=== PATIENT | male | born 1970 | race Caucasian/White ===

== ENCOUNTER 2020-10-08 05:12 | Observation (INO) ==
--- NOTE | 2020-09-28 10:35 | PAT Medication Instructions ---
Medication Instructions Date of Service September 28, 2020 Home Medications Medication Instructions Recorded sodium,potassium,mag sulfates 17.5 See Rx Instructions PO .COMPLEX 12/20/19 gram-3.13 gram-1.6 gram oral soln #354 ml sodium,potassium,mag sulfates 17.5 gram-3.13 gram-1.6 gram oral soln See Rx Instructions atorvastatin [Lipitor] 40 mg PO QAM paroxetine HCl [Paxil] 10 mg PO QAM paroxetine HCl [Paxil] 40 mg PO QAM acetaminophen [Tylenol Extra Strength] 1,000 mg PO Q6H PRN latanoprostene bunod [Vyzulta] 1 drp OPHTHALMIC (EYE) QAM multivitamin 1 tab PO QPM Continue as directed sodium,potassium,mag sulfates 17.5 gram-3.13 gram-1.6 gram oral soln See Rx Instructions Take morning of surgery With a small sip of water, OTHERWISE NOTHING TO EAT OR DRINK AFTER MIDNIGHT: atorvastatin [Lipitor] 40 mg PO QAM paroxetine HCl [Paxil] 10 mg PO QAM paroxetine HCl [Paxil] 40 mg PO QAM acetaminophen [Tylenol Extra Strength] 1,000 mg PO Q6H PRN (okay to take up to 4 hours prior to surgery if needed) latanoprostene bunod [Vyzulta] 1 drp OPHTHALMIC (EYE) QAM Take evening before surgery acetaminophen [Tylenol Extra Strength] 1,000 mg PO Q6H PRN (if needed) multivitamin 1 tab PO QPM Other Notes If you have any questions please call us at [phone] or [phone] or [phone] or [phone]
--- NOTE | 2020-09-30 13:07 | Anesthesiology Consultation ---
Date of Service September 30, 2020 Assessment & Plan (1) Encounter for pre-operative examination: Chart Review Chart Review: Acceptable Risk for Surgery (pending preop Covid testing results ) and Patient seen in Pre Admission Testing Pt admits to drinking 6 cans of beer daily Per PAT appointment 09/30/2020, patient resides in [facility]. Wears mask when required per [facility] guidelines. Good hand hygiene. Tries to social distance. Travel to [place] to [facility] 09/12/2020. Patient is vaccinated for Covid. No known Covid infection in the past 90 days. No known Covid positive contacts or Covid related symptoms. Pt traveling to [place] to watch grandchildren- will return 10/03/20. Preop Covid testing scheduled 10/06/20= will await results. Educated on importance of self quarantining, social distancing and wearing mask in public both for the patient after Covid testing done Teaching & Discussion Pre-Anesthesia Teaching/Discussion Notes: Instructed NPO after midnight before surgery,except medications with 15 cc of water. Medication instructions provided according to the [facility] guidelines. History Surgery Operation Date: 10/08/20 11:00 Proposed Procedures p Right Unicompartmental Knee - Ryan Davidson MD s Right Total Knee Replacement - Ryan Davidson MD Height/Weight Height: 5 ft 8 in Weight: 108.3 kg Allergies Allergy/AdvReac Type Severity Reaction Status Date / Time cat dander Allergy Severe eyes Verified 09/28/20 08:38 swell/throat swelling No Known Drug Allergies Allergy Unknown NONE Verified 09/28/20 08:38 Medications Home Medications Medication Instructions Recorded Confirmed Last Taken atorvastatin 40 mg tablet (Lipitor) 40 mg PO QAM 12/23/19 09/28/20 12/29/19 paroxetine HCl 10 mg tablet (Paxil) 10 mg PO QAM 12/23/19 09/28/20 12/29/19 paroxetine HCl 40 mg tablet (Paxil) 40 mg PO QAM 12/23/19 09/28/20 12/29/19 acetaminophen 500 mg capsule 1,000 mg PO Q6H PRN 09/28/20 09/28/20 Unknown latanoprostene bunod 0.024 % eye 1 drp OPHTHALMIC (EYE) QAM 09/28/20 09/28/20 Unknown drops (Vyzulta) multivitamin 1 tab PO QPM 09/28/20 09/28/20 Unknown Past Medical History Medical History Anxiety Depression Glaucoma Follows with eye doctor routinely Hyperlipidemia Obesity Exercise / Class Metabolic Activity II 4-5 Yardwork/Stairs/Walk up hill (ONE FLIGHT OF STAIRS - NO CHEST PAIN OR SOB ) Past Family History Family History Other No family history of adverse response to anesthesia Past Surgical History Surgical History History of colonoscopy 2020 History of root canal procedure x2 History of tooth extraction History of wisdom tooth extraction Hx of vasectomy Past Anesthesia History No Hx of Anesthesia Complications (with exception to one episode of PONV with vasectomy ) and No Family Hx of Anesthesia Complications History of PONV No Hx of Motion Sickness and History of PONV (one episode of PONV with vasectomy ) Social History Smoking Status: Current every day smoker tobacco type: cigarettes Smoking cigarettes per day: 20 CIGS A DAY Do You Dip or Chew Tobacco: Yes (1 CAN A DAY) Hx Alcohol Use: Yes Alcohol type: beer alcohol intake frequency: 3 or more drinks per day Alcohol Intake Frequency Comment: 6 CANS OF BEER DAILY Hx Substance Use: No substance use type: does not use Review of Systems Hx of snoring - no witnessed apnea. No hx of sleep study Patient denies chest pain, shortness of breath, dyspnea on exertion, reflux, cough, wheezing, palpitations. No hx of seizures, stroke, MS.. No hx of blood clots or blood transfusions Physical Exam Vital Signs VITALS BP 146/91 P 85 TEMP 98.2 SP02 96% RESP 16 Constitutional no acute distress ENMT Mouth: no TMJ clicking Thyromental Distance: > or= 3.5 Finger Breadths (3.5) Mallampati Class: II Mouth / Teeth: 1. Right permanent implant on side Neck neck extension not limited Respiratory normal respiratory effort; no respiratory distress Auscultation: lungs clear to auscultation bilaterally; no wheezes Cardiovascular Rate/Rhythm: regular rate and regular rhythm Heart Sounds: no murmur Vessels: no carotid bruit Musculoskeletal Spine: no pain with cervical ROM Extremities: extremities normal to inspection Psychiatric Orientation: alert Lab Results Anesthesia Preop Results Results Anesthesia Widget: WBC 11.23 K/uL (4.8-10.8) H 09/30/20 Hgb 15.5 g/dL (14.0-18.0) 09/30/20 Hct 46.5 % (42-52) 09/30/20 Plt 319 K/uL (130-400) 09/30/20 Na 135 mmol/L (136-145) L 09/30/20 K 3.9 mmol/L (3.5-5.1) 09/30/20 Cl 105 mmol/L (98-107) 09/30/20 CO2 25 mmol/L (21-32) 09/30/20 BUN 14 mg/dl (7-18) 09/30/20 Creat 0.90 mg/dl (0.6-1.4) 09/30/20 Glucose Level 88 mg/dl (70-99) 09/30/20 PT 10.7 Seconds (9.0-12.0) 09/30/20 PTT 27.9 Seconds (21.0-31.0) 09/30/20 INR 1.1 (0.9-1.1) 09/30/20 Blood Type O Positive 09/30/20 Antibody Screen NEGATIVE 09/30/20 Testing Electrocardiogram Date: 09/30/20 Findings: + NSR @ (67bpm) Left axis deviation. Chest X-Ray Date: 09/30/20 Findings: + NAD
[2020-10-08] MEDS ORDERED: ceFAZolin 2000MG 2,000 MG/15 ML SYR IV SCH (06:00)
[2020-10-08] MEDS ORDERED: FAMOTIDINE 20 MG TAB PO SCH (06:00)
[2020-10-08] MEDS ORDERED: LR 60ML/HR IV SCH (06:00)
[2020-10-08] MEDS ORDERED: BUPIVACAINE LIPOSOME/PF 266 MG, BUPIVACAINE/EPINEPHRINE 50 ML, SODIUM CHLORIDE 0.9% 30 ... INFIL SCH (06:00)
[2020-10-08] MEDS ORDERED: ACETAMINOPHEN 500 MG TAB PO SCH (06:00)
[2020-10-08] MEDS ORDERED: Scopolamine 1 MG TDSY TD SCH (06:00)
[2020-10-08] MEDS ORDERED: LR 500ML BOLUS, THEN 15ML/HR IV SCH (06:00)
[2020-10-08] MEDS ORDERED: TRANEXAMIC ACID 1,000 MG **IV Intra-op IV SCH (06:00)
[2020-10-08] MEDS ORDERED: GABAPENTIN 900 MG DOSE PO SCH (06:00)
[2020-10-08] MEDS ORDERED: BUPIVACAINE 0.5 % 5 MG/1 ML PF 10ML VIAL ONE (06:17)
[2020-10-08] MEDS ORDERED: fentaNYL citrate 100 MCG/2 ML VIAL IV PRN (06:39)
[2020-10-08] MEDS ORDERED: ATROPINE SULFATE 0.1 MG/ML 10ML SYR IV PRN (06:39)
[2020-10-08] MEDS ORDERED: ePHEDrine sulfate 50 MG/ML AMP IV PRN (06:39)
[2020-10-08] MEDS ORDERED: ONDANSETRON INJ 2 MG/ML 2 ML VIAL IV PRN ×2 (06:39→10:36)
[2020-10-08] MEDS ORDERED: BUPIVACAINE 0.25% 30 ML VIAL ONE (06:43)
[2020-10-08] MEDS ORDERED: BUPIVACAINE LIPOSOME 1.3% 266 MG/20 ML VIAL ONE (06:43)
[2020-10-08] MEDS ORDERED: SODIUM CHLORIDE 0.9% PF 50 ML VIAL ONE (06:43)
[2020-10-08] MEDS ORDERED: EPINEPHrine INJ 1 MG/ML AMP ONE (06:43)
[2020-10-08] MEDS ORDERED: MIDAZOLAM HCL 1 MG/ML 2ML VIAL ONE (06:47)
--- NOTE | 2020-10-08 06:58 | History & Physical Bridge Note ---
Date of Service October 08, 2020 History & Physical Bridge Note I have examined the patient, reviewed the History & Physical and in the interval since the performance of the History & Physical I have noted the following changes of clinical significance: no changes noted
[2020-10-08] MEDS ORDERED: PROPOFOL IV EMULSION 10 MG/ML 20 ML VIAL IV ONE (07:11)
--- NOTE | 2020-10-08 09:13 | Operative Report ---
Post Operative Report Pre & Post Diagnosis Operation Date: 10/08/20 07:00 Pre-Op Diagnosis: Right Knee Degenerative Joint Disease Post-Op Diagnosis: Right Knee Degenerative Joint Disease I identified the patient and participated in the time-out.: Yes Procedure Operation Date: 10/08/20 07:00 Actual Procedures p Right Unicompartmental Knee (Right) - Ryan Davidson MD Surgeon Ryan Davidson MD Child Attendant SARABJIT Owusu Estimated Blood Loss 25 Findings Consistent with Post-Op Diagnosis Operative findings real advanced right knee medial compartment DJD. He had a full-thickness cartilage was in the medial femoral condyle and some underlying soft bone consistent with Ms. 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 He did have a little where with central trochlea but his patella felt look pretty good in the cartilage ferris. Lateral compartment revealed minimal arthritic change. Today he did have a fairly large knee joint effusion. Fluids 1000 cc Specimens Right knee sent for pathology. Drains None. Anesthesia Type Spinal MAC Complications none Disposition Accompanied Patient To Recovery: No Indications Patient is a 50-year-old gentleman whose had a several year history of gradually increasing right knee pain discomfort is gotten singly worse over the past 6 m onths. He has a questionable history of a OCD lesion of his medial femoral condyle during his younger years. He failed conservative measures. X-rays did not show real advanced arthritic change but his MRI was fairly impressive for cartilage loss as well as edema in his medial femoral condyle medial till plateau. He failed conservative measures. Elected proceed with right partial knee replacement. Description of Procedure Operative implants consist of: 1. [employer] [place] size medium femoral component. 2. [employer] [place] right medial size D tibial tray. 3. 3 mm mobile-bearing polyethylene insert. The patient was taken to the operating, identified, placed on the operating table supine position protectors were properly padded. IV antibiotics were provided by anesthesia team. A spinal anesthetic and abductor canal block had provided holding area. Snow catheter was placed in sterile fashion. A right thigh turn was then placed. The right lower extremities then prepped and draped in usual sterile fashion. The right leg was elevated exsanguinated with use of an Esmarch and turns placed at 3 mmHg. An anterior approach to the right knee was then performed to longitudinal incision beginning at the superior pole patella and extending just medial to the tibial tubercle. Sharp dissection was carried through subcutaneous tissue down the extensor mechanism. A medial parapatellar arthrotomy incision was made. Some subperiosteal dissection was carried out medially taking great care to protect the MCL. The fat pad was resected. I then examined the lateral compartment is fairly well-preserved. His patellofemoral joint showed some mild wear of the central trochlea but we accepted to accept this and proceed with a partial knee replacement. The femur was sized to a size medium. The external tibial alignment jig was then placed in the interface the tibia and adjusted to the femoral spoon and attached with the 4G clamp. The proximal tibial cut was made. The tibia was then sized to a D. Attention drawn the femur. The distal femur was then with a sharp drop with intramedullary antonio was placed. The template for the medium femoral component was attached to the IM antonio and the holes were drilled for the femoral component. Posterior cutting guide was placed and the posterior cut was made. The 0 spigot was used and the distal femur was milled with a 0 spigot. The medial of meniscus was excised. We then trialed the knee in the 3 feeler gauge fit appropriately in flexion and the 1 in extension. Therefore the 2 spigot was placed in the distal femur was milled again. We trialed the knee and appeared balance. It was just a little bit looser in extension and flexion but I elected to accept this without further changes. We then used the cement drill to drill some holes in the distal femur. The posterior osteophyte was removed. The anterior femur was milled for the femoral component. The tibial tray was pinned in place and the toothbrush blade saw was used to create the keel for the tibial tray. I then trialed the knee 1 more time in the 3 mobile-bearing insert fit most appropriately. Was a little bit tight in flexion and extension but once again accepted this. Attention then drawn to placing permanent components. Nupathe all trial components were removed. I irrigated the wound extensively. A single batch of [place] G cement was mixed. A right medial size D tibial tray was cemented in place followed by a medium femoral component. I did place the for a feeler gauge to pressurize the cement the knee was brought out into about 30 degrees short full extension. Once the cement hardened final cement check was then performed. I then trialed the knee 1 more time in the 3 insert fit most appropriately. I could not even fit the 4 and in flexion. The permanent 3 mm insert was placed. The knee tracked well. Attention drawn toward closing. Nupathe wounds irrigated scopes also pulsatile lavage solution. We did inject locally with 100 cc of combination of 20 cc of Exparel, 30 cc normal saline, 50 cc of quarter percent Marcaine with epinephrine. The tourniquet was then let down for turn time 67 minutes. Hemostasis assured use electrocautery. The extensor mechanism closed with #1 Vicryl suture in [id number] fashion. Extensor mechanism was checked and found to be intact and the subcutaneous tissue then closed with 2 Dexon suture in a buried knot fashion skin was closed skin jazmyne. Leg was then cleaned dried a sterile dressing both Xeroform, 4 x 4's, sterile cast padding, Raymond bandage were applied. Patient then transferred to the recovery room in stable condition. Patient tolerated procedure well and there were no complications. Jake Owusu, my physician assistant professor of religion, was present for the entire procedure. His assistance was essential and required for appropriate patient positioning, prepping and draping, surgical exposure, performing the technical details of the operation, placement the implants, closure of the wound, and placement of the sterile bandage. I attest to the content of the Intraoperative Record and any orders documented therein. Any exceptions are noted below.
--- NOTE | 2020-10-08 09:24 | XRay Report ---
XR knee RT 1 or 2V routine CLINICAL HISTORY: Surgical Post Op COMPARISON: August 12, 2020 DISCUSSION: Interval placement of orthopedic hardware within medial compartment of the right knee. Subcutaneous e mphysema and edema, surgical drainage and skin jazmyne are seen. IMPRESSION: Postoperative changes as detailed above. ACT 112: Negative or not required by law. The above report was generated using voice recognition software. It may contain grammatical, syntax o r spelling errors. Electronically signed by: Rosie Deshpande DO 10/08/2020 9:21 AM
--- NOTE | 2020-10-08 10:07 | Anesthesiology Progress Note ---
Date of Service October 08, 2020 Anesthesia Post Procedure Vital Signs Vital Signs: Temp Pulse Pulse Resp BP Pulse Ox 10/08/20 10:00 50 L 14 109/80 92 10/08/20 09:45 51 L 14 115/69 95 10/08/20 09:30 97.5 F L 48 L 14 125/70 93 10/08/20 09:15 55 L 14 114/71 94 10/08/20 09:05 55 L 14 120/77 94 10/08/20 08:57 97.3 F L 62 14 123/74 93 10/08/20 06:35 97.9 F 59 L 20 122/78 96 10/08/20 05:41 97.9 F 63 20 144/86 H 96 Transfer of Care Handoff Completed per policy Notes Mental Status: alert / awake / arousable and participated in evaluation Patient Amnestic to Procedure: Yes Nausea / Vomiting: adequately controlled Pain: adequately controlled Airway Patency, RR, SpO2: stable & adequate BP & HR: stable & adequate Hydration State: stable & adequate Neuraxial Anesthesia: was administered and sensory block is resolving Anesthetic Complications: no major complications apparent and Pt Satisfied with anesthetic care
[2020-10-08] MEDS ORDERED: diphenhydrAMINE Capsule 25 MG CAP PO PRN (10:36)
[2020-10-08] MEDS ORDERED: NALOXONE HCL 0.4 MG/1 ML VIAL/CARP IV PRN (10:36)
[2020-10-08] MEDS ORDERED: SODIUM CHLORIDE 0.9% 1000ML 1,000 ML IV SCH (10:36)
[2020-10-08] MEDS ORDERED: TAMSULOSIN HCL 0.4 MG CAP PO PRN (10:36)
[2020-10-08] MEDS ORDERED: MAGNESIUM HYDROXIDE SUSP 30 ML UDC PO PRN (10:36)
[2020-10-08] MEDS ORDERED: bisacodyL 10 MG SUPP PR PRN (10:36)
[2020-10-08] MEDS ORDERED: ALUMINUM/MAGNESIUM SUSP 30 ML UDC PO PRN (10:36)
[2020-10-08] MEDS ORDERED: METOCLOPRAMIDE HCL INJ 5 MG/ML 2 ML VIAL IV PRN (10:36)
[2020-10-08] MEDS: HYDROmorphone INJ 0.5 MG/0.5 ML SYR IV PRN (11:26)
[2020-10-08] MEDS: KETOROLAC TROMETHAMINE 15 MG/ML VIAL IV SCH ×3 (12:37→23:41)
[2020-10-08] MEDS: PARoxetine HCL 20 MG TAB PO SCH (12:38)
[2020-10-08] MEDS: ASPIRIN 81 MG ECTAB PO SCH ×2 (12:39→22:01)
[2020-10-08] MEDS: MULTIVITAMIN TAB PO SCH (12:39)
[2020-10-08] MEDS: DOCUSATE SODIUM 100 MG CAP PO SCH ×2 (12:39→19:44)
[2020-10-08] MEDS: PARoxetine HCL 10 MG TAB PO SCH (12:40)
[2020-10-08] MEDS: ATORVASTATIN 40 MG TAB PO SCH (12:40)
[2020-10-08] MEDS: traMADol HCL 50 MG TABLET PO PRN ×2 (12:45→22:04)
[2020-10-08] MEDS: ACETAMINOPHEN 500 MG TAB PO SCH ×2 (13:42→22:01)
[2020-10-08] MEDS: Scopolamine CHECK PATCH PLACEMENT SCH ×2 (15:45→23:41)
[2020-10-08] MEDS: ceFAZolin 2000MG 2,000 MG/15 ML SYR IV SCH ×2 (15:56→23:41)
[2020-10-08] MEDS ORDERED: ASCORBIC ACID 500 MG TAB PO SCH (17:00)
[2020-10-08] MEDS: NICOTINE 14 MG/24 HR PATCH TD SCH (17:58)
[2020-10-08] MEDS ORDERED: SENNA 8.6 MG TAB PO SCH (21:00)
[2020-10-08] MEDS ORDERED: MULTIVITAMIN TAB PO SCH (21:00)
[2020-10-09] MEDS: traMADol HCL 50 MG TABLET PO PRN (04:06)
[2020-10-09] MEDS: HYDROmorphone INJ 0.5 MG/0.5 ML SYR IV PRN (05:12)
[2020-10-09] MEDS: ACETAMINOPHEN 500 MG TAB PO SCH (05:22)
[2020-10-09] MEDS: KETOROLAC TROMETHAMINE 15 MG/ML VIAL IV SCH (05:23)
[2020-10-09] MEDS ORDERED: dexAMETHasone 10 MG in SYRINGE 0 ML IV SCH (08:00)
[2020-10-09] MEDS: MULTIVITAMIN TAB PO SCH (08:08)
[2020-10-09] MEDS: PARoxetine HCL 10 MG TAB PO SCH (08:09)
[2020-10-09] MEDS: PARoxetine HCL 20 MG TAB PO SCH (08:10)
[2020-10-09] MEDS: DOCUSATE SODIUM 100 MG CAP PO SCH (08:11)
[2020-10-09] MEDS: ASPIRIN 81 MG ECTAB PO SCH (08:11)
[2020-10-09] MEDS: ATORVASTATIN 40 MG TAB PO SCH (08:12)
[2020-10-09] MEDS: NICOTINE 14 MG/24 HR PATCH TD SCH (08:12)
[2020-10-09] MEDS: Scopolamine CHECK PATCH PLACEMENT SCH (08:20)
--- NOTE | 2020-10-09 09:53 | Progress Notes ---
DATE OF SERVICE: 10/09/2020 SUBJECTIVE: A 50-year-old gentleman postop day #1 from a right partial knee replacement. A little b it more painful this morning. No chest pain or shortness of breath. Not feeling dizzy or lightheade d. OBJECTIVE: VITAL SIGNS: Temperature 36.7. Vital signs are stable. PHYSICAL EXAMINATION: GENERAL: Shows a pleasant middle-aged male. Lying in bed, looks pretty comfortable. LUNGS: Clear to auscultation. HEART: Regular rate and rhythm. ABDOMEN: Soft, nontender, nondistended. EXTREMITIES: Grossly neurovascularly intact except as follows: Examination of the right leg reveals the dressing to be clean, dry and intact. Leg is well aligned. He can do a straight leg raise. He can dorsiflex and plantarflex his foot appropriately. He is neurologically intact. ASSESSMENT: A 50-year-old gentleman postoperative day 1 from a right partial knee replacement, doing pretty well. A little bit more painful this morning, which is not too surprising. Leg is working g ood. He is neurologically intact. PLAN: 1. DVT prophylaxis includes thigh-high TEDs, SCDs, and aspirin twice a day. 2. PT, OT, weightbear as tolerated. Right total knee protocol. 3. Pain control, doing okay with current pain regimen. 4. Disposition: Plan to discharge to home with some home health likely later today after therapy. Job ID: [id number]
--- NOTE | 2020-10-10 21:11 | Discharge Summary ---
Date of Service October 10, 2020 Discharge Data Procedures Performed Operation Date: 10/08/20 07:00 Actual Procedures p Right Unicompartmental Knee (Right) - Ryan Davidson MD Hospital Course (1) Status post right partial knee replacement: This is a 50 year old patient admitted on 10/08/20 and underwent partial knee replacement. He tolerated the procedure well and there were no complications. Transferred to the PACU post op and later to the orthopedic floor for further care. He was given ancef for antibiotic prophylaxis. He was also given GOMEZ stockings, SCDs, and aspirin for DVT prophylaxis. Hemoglobin, hematocrit, and vital signs were monitored during his hospital stay and remained stable. Did not require any blood transfusions. There were no complications during his hospital stay. By post op day #1 the patient was tolerating a regular diet, pain was reasonably controlled with oral pain medicine, and he was participating in physical therapy. On post op day #1 the patient was discharged home and set up with home health care. He was given printed discharge instructions including prescriptions for extra strength tylenol, aspirin, and oxycodone. Continue physical therapy, weight bearing as tolerated. Continue GOMEZ stockings. Follow up approximately 2 weeks post op or sooner if there are problems or concerns. Coding Level of Care Code None Diagnoses Status post right partial knee replacement Z96.651
== END 2020-10-09 11:09 | disposition home health service (06) ==
LOC: ASU 05:12 → PACUINP 05:12 → 3W 10:44